=== PATIENT | male | born 1955 | race Caucasian/White ===

== ENCOUNTER → 2024-08-15 | Outpatient (BNVA) | payer MEDICARE, SELFPAY | END | disposition home or self-care (01) | PROVIDERS: PCP Family Medicine; Referring Provider Family Medicine; Visit Provider Urology | DX: N40.1 Benign prostatic hyperplasia with lower urinary tract symptoms (principal); Z87.440 Personal history of urinary (tract) infections; K21.9 Gastro-esophageal reflux disease without esophagitis | CPT/HCPCS: 99212; G0463 ==

== ENCOUNTER → 2024-11-04 | Outpatient (BNVA) | payer MEDICARE, SELFPAY | END | disposition home or self-care (01) | PROVIDERS: PCP Family Medicine; Referring Provider Family Medicine; Visit Provider Urology | DX: N40.1 Benign prostatic hyperplasia with lower urinary tract symptoms (principal); N13.8 Other obstructive and reflux uropathy; Z87.440 Personal history of urinary (tract) infections; E66.9 Obesity, unspecified; Z68.41 Body mass index [BMI] 40.0-44.9, adult; I10 Essential (primary) hypertension; K21.9 Gastro-esophageal reflux disease without esophagitis | CPT/HCPCS: 99212; G0463 ==

== ENCOUNTER → 2024-12-03 | Outpatient (CLI) | payer MEDICARE, SELFPAY | END | disposition home or self-care (01) | PROVIDERS: Visit Provider Student in an Organized Health Care Education/Training Program | DX: E11.621 Type 2 diabetes mellitus with foot ulcer (principal); L97.512 Non-pressure chronic ulcer of other part of right foot with fat layer exposed; E11.40 Type 2 diabetes mellitus with diabetic neuropathy, unspecified; M19.09 Primary osteoarthritis, other specified site | CPT/HCPCS: 11042; 99213; A9270; G0463 ==

== ENCOUNTER → 2024-12-10 | Outpatient (CLI) | payer MEDICARE, SELFPAY | END | disposition home or self-care (01) | LOC: SWHD 13:14 | PROVIDERS: Visit Provider Student in an Organized Health Care Education/Training Program | DX: E11.621 Type 2 diabetes mellitus with foot ulcer (principal); L97.512 Non-pressure chronic ulcer of other part of right foot with fat layer exposed; E11.40 Type 2 diabetes mellitus with diabetic neuropathy, unspecified; M19.09 Primary osteoarthritis, other specified site | CPT/HCPCS: 97597; A9270 ==

== ENCOUNTER → 2024-12-17 | Outpatient (CLI) | payer MEDICARE, SELFPAY | END | disposition home or self-care (01) | LOC: SWHD 13:17 | PROVIDERS: PCP Family Medicine; Referring Provider Family Medicine; Visit Provider Student in an Organized Health Care Education/Training Program | DX: E11.621 Type 2 diabetes mellitus with foot ulcer (principal) | CPT/HCPCS: 97597; A9270 ==

== ENCOUNTER → 2024-12-29 | Outpatient (CLI) | payer MEDICARE, SELFPAY | END | disposition home or self-care (01) | LOC: SWHD 11:10 | PROVIDERS: PCP Family Medicine; Referring Provider Family Medicine; Visit Provider Surgery | DX: E11.621 Type 2 diabetes mellitus with foot ulcer (principal); L97.512 Non-pressure chronic ulcer of other part of right foot with fat layer exposed; E11.40 Type 2 diabetes mellitus with diabetic neuropathy, unspecified; M19.09 Primary osteoarthritis, other specified site | CPT/HCPCS: 97597; A9270 ==

== ENCOUNTER → 2025-01-07 | Outpatient (CLI) | payer MEDICARE, SELFPAY | END | disposition home or self-care (01) | LOC: SWHD 14:02 | PROVIDERS: PCP Family Medicine; Referring Provider Family Medicine; Visit Provider Student in an Organized Health Care Education/Training Program | DX: E11.621 Type 2 diabetes mellitus with foot ulcer (principal); L97.512 Non-pressure chronic ulcer of other part of right foot with fat layer exposed; E11.40 Type 2 diabetes mellitus with diabetic neuropathy, unspecified; M19.09 Primary osteoarthritis, other specified site; M21.371 Foot drop, right foot | CPT/HCPCS: 97597; A9270 ==

== ENCOUNTER → 2025-01-14 | Outpatient (CLI) | payer MEDICARE, SELFPAY | END | disposition home or self-care (01) | LOC: SWHD 10:14 | PROVIDERS: PCP Family Medicine; Referring Provider Family Medicine; Visit Provider Surgery | DX: E11.621 Type 2 diabetes mellitus with foot ulcer (principal); L97.512 Non-pressure chronic ulcer of other part of right foot with fat layer exposed; E11.40 Type 2 diabetes mellitus with diabetic neuropathy, unspecified; M19.09 Primary osteoarthritis, other specified site; M21.371 Foot drop, right foot | CPT/HCPCS: 97597; A9270 ==

== ENCOUNTER → 2025-01-28 | Outpatient (CLI) | payer MEDICARE, SELFPAY | END | disposition home or self-care (01) | LOC: SWHD 13:52 | PROVIDERS: PCP Family Medicine; Referring Provider Family Medicine; Visit Provider Student in an Organized Health Care Education/Training Program | DX: E11.621 Type 2 diabetes mellitus with foot ulcer (principal); L97.512 Non-pressure chronic ulcer of other part of right foot with fat layer exposed; E11.40 Type 2 diabetes mellitus with diabetic neuropathy, unspecified; M19.09 Primary osteoarthritis, other specified site; M21.371 Foot drop, right foot | CPT/HCPCS: 97597; A9270 ==

== ENCOUNTER → 2025-02-06 | Outpatient (CLI) | payer MEDICARE, SELFPAY | END | disposition home or self-care (01) | LOC: SWHD 13:15 | PROVIDERS: PCP Family Medicine; Referring Provider Family Medicine; Visit Provider Physician Assistant | DX: E11.621 Type 2 diabetes mellitus with foot ulcer (principal); L97.512 Non-pressure chronic ulcer of other part of right foot with fat layer exposed; E11.40 Type 2 diabetes mellitus with diabetic neuropathy, unspecified; M19.09 Primary osteoarthritis, other specified site; M21.371 Foot drop, right foot | CPT/HCPCS: 97597; A9270 ==

== ENCOUNTER → 2025-02-11 | Outpatient (CLI) | payer MEDICARE, SELFPAY | END | disposition home or self-care (01) | LOC: SWHD 14:58 | PROVIDERS: PCP Family Medicine; Referring Provider Family Medicine; Visit Provider Surgery | DX: E11.621 Type 2 diabetes mellitus with foot ulcer (principal); L97.512 Non-pressure chronic ulcer of other part of right foot with fat layer exposed; E11.40 Type 2 diabetes mellitus with diabetic neuropathy, unspecified; M19.09 Primary osteoarthritis, other specified site; M21.371 Foot drop, right foot | CPT/HCPCS: 99213; A9270; G0463 ==

== ENCOUNTER → 2025-02-13 | Outpatient (CLI) | payer MEDICARE, SELFPAY | END | disposition home or self-care (01) | LOC: SWHD 14:43 | PROVIDERS: PCP Family Medicine; Referring Provider Family Medicine; Visit Provider Student in an Organized Health Care Education/Training Program | DX: E11.621 Type 2 diabetes mellitus with foot ulcer (principal); L97.512 Non-pressure chronic ulcer of other part of right foot with fat layer exposed; E11.40 Type 2 diabetes mellitus with diabetic neuropathy, unspecified; M19.09 Primary osteoarthritis, other specified site; M21.371 Foot drop, right foot; E66.01 Morbid (severe) obesity due to excess calories; M21.6X1 Other acquired deformities of right foot | CPT/HCPCS: 97597; A9270 ==

== ENCOUNTER → 2025-02-25 | Outpatient (CLI) | payer MEDICARE, SELFPAY | END | disposition home or self-care (01) | LOC: SWHD 13:16 | PROVIDERS: PCP Family Medicine; Referring Provider Family Medicine; Visit Provider Student in an Organized Health Care Education/Training Program | DX: E11.621 Type 2 diabetes mellitus with foot ulcer (principal); L97.511 Non-pressure chronic ulcer of other part of right foot limited to breakdown of skin; E11.40 Type 2 diabetes mellitus with diabetic neuropathy, unspecified; M19.09 Primary osteoarthritis, other specified site; M21.371 Foot drop, right foot; E66.01 Morbid (severe) obesity due to excess calories; M21.6X1 Other acquired deformities of right foot | CPT/HCPCS: 99213; G0463 ==

== ENCOUNTER → 2025-03-11 | Outpatient (CLI) | payer MEDICARE, SELFPAY | END | disposition home or self-care (01) | LOC: SWHD 13:17 | PROVIDERS: PCP Family Medicine; Referring Provider Family Medicine; Visit Provider Student in an Organized Health Care Education/Training Program | DX: E11.621 Type 2 diabetes mellitus with foot ulcer (principal); L97.511 Non-pressure chronic ulcer of other part of right foot limited to breakdown of skin; E66.01 Morbid (severe) obesity due to excess calories; E11.40 Type 2 diabetes mellitus with diabetic neuropathy, unspecified; M19.09 Primary osteoarthritis, other specified site; M21.371 Foot drop, right foot; M21.6X1 Other acquired deformities of right foot | CPT/HCPCS: 99212; A9270; G0463 ==

== ENCOUNTER → 2025-04-01 | Outpatient (CLI) | payer MEDICARE, SELFPAY | END | disposition home or self-care (01) | LOC: SWHD 13:20 | PROVIDERS: PCP Family Medicine; Referring Provider Family Medicine; Visit Provider Student in an Organized Health Care Education/Training Program | DX: E11.621 Type 2 diabetes mellitus with foot ulcer (principal); L97.511 Non-pressure chronic ulcer of other part of right foot limited to breakdown of skin; E66.01 Morbid (severe) obesity due to excess calories; E11.40 Type 2 diabetes mellitus with diabetic neuropathy, unspecified; M19.09 Primary osteoarthritis, other specified site; M21.371 Foot drop, right foot; M21.6X1 Other acquired deformities of right foot | CPT/HCPCS: 97597; A9270 ==

== ENCOUNTER → 2025-04-22 | Outpatient (CLI) | payer MEDICARE, SELFPAY | END | disposition home or self-care (01) | LOC: SWHD 13:29 | PROVIDERS: PCP Family Medicine; Referring Provider Family Medicine; Visit Provider Student in an Organized Health Care Education/Training Program | DX: E11.621 Type 2 diabetes mellitus with foot ulcer (principal); L97.512 Non-pressure chronic ulcer of other part of right foot with fat layer exposed; E66.01 Morbid (severe) obesity due to excess calories; E11.40 Type 2 diabetes mellitus with diabetic neuropathy, unspecified; M19.09 Primary osteoarthritis, other specified site; M21.371 Foot drop, right foot; M21.6X1 Other acquired deformities of right foot | CPT/HCPCS: 97597; A9270 ==

== ENCOUNTER → 2025-04-22 | Outpatient (CLI) | payer MEDICARE, SELFPAY ==
[2025-04-22 16:55] LABS: Basophils # (Auto) 0.0 Thou/mm3 (0.0-0.2); Basophils % (Auto) 1 % (0-2.5); Eosinophils # (Auto) 0.2 Thou/mm3 (0.0-0.5); Eosinophils % (Auto) 3 % (0-10); Hematocrit 43.2 % (41.0-53.0); Hemoglobin 14.6 g/dL (13.5-16.0); Immature Granulocytes Auto 0.01 Thou/mm3 (0.00-0.00); Lymphocytes # (Auto) 2.2 Thou/mm3 (1.0-4.8); Lymphocytes % (Auto) 41 % (10-50); Mean Corpuscular HGB Conc 33.8 g/dl (31.0-37.0); Mean Corpuscular Hemoglobin 30.0 pg (25.0-35.0); Mean Corpuscular Volume 89 fL (80-100); Monocytes # (Auto) 0.4 Thou/mm3 (0.0-0.8); Monocytes % (Auto) 8 % (0-12); Neutrophils # (Auto) 2.5 Thou/mm3 (1.8-7.7); Neutrophils % (Auto) 47 % (37-80); Nucleated Red Blood Cell # 0.00 Thou/mm3 (0.00-0.00); Nucleated Red Blood Cell % 0 /100 WBC (0); Platelet Count 178 Thou/mm3 (140-440); RDW Standard Deviation 41.1 fL (35.1-43.9); Red Blood Count 4.86 Miln/mm3 (4.50-5.90); White Blood Count 5.2 Thou/mm3 (3.8-10.6)
[2025-04-22 17:06] LABS: Glucose Estimated Average 120 mg/dL (80-131); Hemoglobin A1C 5.8 % Hgb (4.8-6.0)
[2025-04-22 17:18] LABS: Prostate Specific Antigen 0.57 ng/mL (0-4.00); T4 (Thyroxine) 8.6 mcg/dL (4.5-10.9)
[2025-04-22 17:24] LABS: Alanine Aminotransferase 9 U/L (10-49); Albumin, Serum 4.1 gm/dL (3.4-4.8); Albumin/Globulin Ratio 1.9 (1.2-2.2); Alkaline Phosphatase 68 U/L (46-116); Anion Gap 6 (7-16); Aspartate Amino Transferase 13 U/L (0-34); BUN/Creatinine Ratio 10 Ratio (12-20); Bilirubin,Total 0.5 mg/dL (0.3-1.2); Blood Urea Nitrogen 9 mg/dL (9-23); Calcium 9.2 mg/dL (8.3-10.6); Calcium (Corrected) 9.2 mg/dL (8.5-10.1); Carbon Dioxide 29.6 mMol/L (20.0-31.0); Cardiac Risk Estimate 5.7 RATIO (4.0-6.7); Chloride 104 mMol/L (98-107); Cholesterol 178 mg/dL (132-200); Creatinine (Component) 0.9 mg/dL (0.6-1.3); Free T4 (Free Thyroxine) 1.23 ng/dL (0.89-1.76); Globulin 2.2 gm/dL (2.3-3.5); Glucose 103 mg/dL (74-106); HDL Cholesterol 31 mg/dL (40-60); LDL Cholesterol,Calculated 123 mg/dL (0-130); Osmolality,Calculated 278 (275-295); Potassium 4.4 mMol/L (3.4-5.1); Sodium 140 mMol/L (136-145); Thyroid Stimulating Hormone 0.62 uIU/mL (0.55-4.78); Total Protein 6.3 gm/dL (5.7-8.2); Triglycerides 121 mg/dL (30-150); eGFR > 60 See Note
[2025-04-29 06:52] LABS: T3,Total* 131 ng/dL (76-181)
== END | disposition home or self-care (01) ==
LOC: COPL 15:12
PROVIDERS: PCP Family Medicine; Referring Provider Family Medicine; Visit Provider Family Medicine
DX: E11.65 Type 2 diabetes mellitus with hyperglycemia (principal); E66.3 Overweight; N40.1 Benign prostatic hyperplasia with lower urinary tract symptoms
CPT/HCPCS: 36415; 80053; 80061; 83036; 84153; 84436; 84439; 84443; 84480; 85025

== ENCOUNTER → 2025-04-29 | Outpatient (CLI) | payer MEDICARE, SELFPAY | END | disposition home or self-care (01) | LOC: SWHD 13:57 | PROVIDERS: PCP Family Medicine; Referring Provider Family Medicine; Visit Provider Student in an Organized Health Care Education/Training Program | DX: E11.621 Type 2 diabetes mellitus with foot ulcer (principal); L97.511 Non-pressure chronic ulcer of other part of right foot limited to breakdown of skin; E66.01 Morbid (severe) obesity due to excess calories; E11.40 Type 2 diabetes mellitus with diabetic neuropathy, unspecified; M19.09 Primary osteoarthritis, other specified site; M21.371 Foot drop, right foot; M21.6X1 Other acquired deformities of right foot | CPT/HCPCS: 97597; A9270 ==

== ENCOUNTER → 2025-04-30 | Outpatient (CLI) | payer MEDICARE, SELFPAY ==
[2025-04-30 16:29] LABS: Prostate Specific Antigen 0.54 ng/mL (0-4.00)
== END | disposition home or self-care (01) ==
LOC: COPL 14:57
PROVIDERS: PCP Family Medicine; Referring Provider Urology; Visit Provider Urology
DX: N40.1 Benign prostatic hyperplasia with lower urinary tract symptoms (principal)
CPT/HCPCS: 36415; 84153

== ENCOUNTER → 2025-05-05 | Outpatient (BNVA) | payer MEDICARE, SELFPAY | END | disposition home or self-care (01) | PROVIDERS: PCP Urology; Referring Provider Urology; Visit Provider Physician Assistant | DX: N40.1 Benign prostatic hyperplasia with lower urinary tract symptoms (principal); I10 Essential (primary) hypertension; G47.30 Sleep apnea, unspecified; Z85.038 Personal history of other malignant neoplasm of large intestine; K21.9 Gastro-esophageal reflux disease without esophagitis; Z87.440 Personal history of urinary (tract) infections | CPT/HCPCS: 99212; Q3014; G0463 ==

== ENCOUNTER → 2025-05-20 | Outpatient (CLI) | payer MEDICARE, SELFPAY | END | disposition home or self-care (01) | LOC: SWHD 11:07 | PROVIDERS: PCP Family Medicine; Referring Provider Family Medicine; Visit Provider Student in an Organized Health Care Education/Training Program | DX: E11.621 Type 2 diabetes mellitus with foot ulcer (principal); L97.512 Non-pressure chronic ulcer of other part of right foot with fat layer exposed; E66.01 Morbid (severe) obesity due to excess calories; E11.40 Type 2 diabetes mellitus with diabetic neuropathy, unspecified; M19.09 Primary osteoarthritis, other specified site; M21.371 Foot drop, right foot; M21.6X1 Other acquired deformities of right foot | CPT/HCPCS: 97597; A9270 ==

== ENCOUNTER → 2025-06-10 | Outpatient (CLI) | payer MEDICARE, SELFPAY | END | disposition home or self-care (01) | LOC: SWHD 14:24 | PROVIDERS: PCP Family Medicine; Referring Provider Family Medicine; Visit Provider Student in an Organized Health Care Education/Training Program | DX: E11.621 Type 2 diabetes mellitus with foot ulcer (principal); L97.512 Non-pressure chronic ulcer of other part of right foot with fat layer exposed; E66.01 Morbid (severe) obesity due to excess calories; E11.40 Type 2 diabetes mellitus with diabetic neuropathy, unspecified; M19.09 Primary osteoarthritis, other specified site; M21.371 Foot drop, right foot; M21.6X1 Other acquired deformities of right foot | CPT/HCPCS: 99213; A9270; G0463 ==

== ENCOUNTER → 2025-06-24 | Outpatient (CLI) | payer MEDICARE, SELFPAY | END | disposition home or self-care (01) | LOC: SWHD 13:25 | PROVIDERS: PCP Family Medicine; Referring Provider Family Medicine; Visit Provider Student in an Organized Health Care Education/Training Program | DX: E11.621 Type 2 diabetes mellitus with foot ulcer (principal); L97.512 Non-pressure chronic ulcer of other part of right foot with fat layer exposed; E66.01 Morbid (severe) obesity due to excess calories; M19.09 Primary osteoarthritis, other specified site; M21.6X1 Other acquired deformities of right foot; M21.371 Foot drop, right foot | CPT/HCPCS: 97597; A9270 ==

== ENCOUNTER → 2025-07-08 | Outpatient (CLI) | payer MEDICARE, SELFPAY | END | disposition home or self-care (01) | LOC: SWHD 14:04 | PROVIDERS: PCP Family Medicine; Referring Provider Family Medicine; Visit Provider Student in an Organized Health Care Education/Training Program | DX: E11.621 Type 2 diabetes mellitus with foot ulcer (principal); L97.512 Non-pressure chronic ulcer of other part of right foot with fat layer exposed; E66.01 Morbid (severe) obesity due to excess calories; M19.09 Primary osteoarthritis, other specified site; M21.6X1 Other acquired deformities of right foot; M21.371 Foot drop, right foot | CPT/HCPCS: 97597 ==

== ENCOUNTER → 2025-07-29 | Outpatient (CLI) | payer MEDICARE, SELFPAY | END | disposition home or self-care (01) | LOC: SWHD 14:45 | PROVIDERS: PCP Family Medicine; Referring Provider Family Medicine; Visit Provider Student in an Organized Health Care Education/Training Program | DX: E11.621 Type 2 diabetes mellitus with foot ulcer (principal); L97.512 Non-pressure chronic ulcer of other part of right foot with fat layer exposed; E66.01 Morbid (severe) obesity due to excess calories; M19.09 Primary osteoarthritis, other specified site; M21.6X1 Other acquired deformities of right foot; M21.371 Foot drop, right foot | CPT/HCPCS: 97597; A9270 ==

== ENCOUNTER → 2025-08-19 | Outpatient (CLI) | payer MEDICARE, SELFPAY | END | disposition home or self-care (01) | PROVIDERS: PCP Family Medicine; Referring Provider Family Medicine; Visit Provider Student in an Organized Health Care Education/Training Program | DX: E11.621 Type 2 diabetes mellitus with foot ulcer (principal); L97.512 Non-pressure chronic ulcer of other part of right foot with fat layer exposed; E66.01 Morbid (severe) obesity due to excess calories; M19.09 Primary osteoarthritis, other specified site; M21.6X1 Other acquired deformities of right foot; M21.371 Foot drop, right foot | CPT/HCPCS: 97597; A9270 ==